=== PATIENT | female | born 2000 | race Caucasian/White ===

== ENCOUNTER 2019-12-23 00:01 | Emergency (ER) | payer OTHER ==
[~2019-12-23] VITALS: Ht 160 cm; Wt 70.5 kg
[2019-12-23 00:04] VITALS: TEMP 98.2
[2019-12-23 01:12] LABS: BASO % 0.3 % (0.0-2.0); EOS # 0.1 (0.0-0.7); EOS % 1.2 % (0-4.0); GRAN # 8.1 (1.4-6.5); GRAN % 67.2 % (42.2-75.2); HEMOGLOBIN 12.4 g/dl (12.5-16.0); LYMPH % 24.7 % (20.0-51.0); MEAN CELL VOLUME 88 fl (80.0-100.0); MEAN CORPUSCULAR HEMOGLOBIN 31 pg (27.0-31.0); MEAN CORPUSCULAR HGB CONC 35 g/dl (33.0-37.0); MEAN PLATELET VOLUME 9.7 fl (7.4-10.4); MONO # 0.7 (0.1-0.6); MONO % 6.1 % (1.7-9.3); PLATELET COUNT 288 K/mm3 (130-400); RED BLOOD COUNT 4.01 M/mm3 (4.10-5.30); REDCELL DISTRIBUTION WIDTH-CV 11.9 % (11.5-14.5)
[2019-12-23 01:13] LABS: HEMATOCRIT 35.2 % (37.0-47.0)
[2019-12-23] MEDS ORDERED: PROTONIX20 MG PO (02:07)
[2019-12-23 02:24] VITALS: BP 108/59; PULSE 74
== END 2019-12-23 02:24 | disposition home or self-care (01) ==
LOC: COL.ER 00:01
PROVIDERS: Emergency Medicine
DX: O46.8X2 Other antepartum hemorrhage, second trimester (principal); K92.0 Hematemesis; Z3A.15 15 weeks gestation of pregnancy